=== PATIENT | male | born 1970 | race Caucasian/White ===

== ENCOUNTER 2019-03-31 11:36 | Emergency (ER) | payer SELFPAY ==
[~2019-03-31] VITALS: Ht 180.3 cm; Wt 97.7 kg
[2019-03-31 11:47] VITALS: TEMP 97.8
[2019-03-31] MEDS ORDERED: AMITRIPTYLINE H50 M1 PO (11:47)
[2019-03-31] MEDS ORDERED: CELEXA 20MG20 MG/TAB PO (11:47)
[2019-03-31 13:08] VITALS: BP 106/74; PULSE 77
== END 2019-03-31 13:08 | disposition home or self-care (01) ==
LOC: COL.ER 11:36
DX: M25.572 Pain in left ankle and joints of left foot (principal); M10.9 Gout, unspecified; F32.9 Major depressive disorder, single episode, unspecified

== ENCOUNTER → 2023-08-27 | Outpatient (CLI) | payer OTHER ==
[~2023-08-27] MED LIST: AMITRIPTYLINE H50 M1 PO; CELEXA 20MG20 MG/TAB PO
== END ==
LOC: COL.CARD 11:00 → EDSEX 11:00
DX: J44.9 Chronic obstructive pulmonary disease, unspecified (principal); Z02.71 Encounter for disability determination